=== PATIENT | female | born 1965 | race Caucasian/White ===

== ENCOUNTER 2018-06-01 05:29 | Day surgery (SDC) | payer OTHER ==
[~2018-06-01] VITALS: Ht 154.9 cm; Wt 61.7 kg
[2018-06-01] MEDS ORDERED: CEFAZOLIN SOD 1 GM in D5W 50 ML IV ONE (07:00)
[2018-06-01] MEDS ORDERED: fentaNYL CITRATE/PF 100 MCG/2 ML AMP IVP PRN ×2 (08:00)
[2018-06-01] MEDS ORDERED: ONDANSETRON HCL 4 MG/2 ML VIAL IVP PRN ×2 (08:00→11:00)
[2018-06-01] MEDS ORDERED: KETOROLAC TROMETHAMINE 30 MG VIAL IVP PRN (08:00)
[2018-06-01] MEDS ORDERED: ROCURONIUM BROMIDE 10 MG/ML (ZEMURON) ONE (10:20)
[2018-06-01] MEDS ORDERED: NS 1000 ML IV.SOLN IV ONE (10:20)
[2018-06-01] MEDS ORDERED: ONDANSETRON HCL 4 MG/2 ML VIAL ONE ×2 (10:20→11:14)
[2018-06-01] MEDS ORDERED: NS IRRIG SOLN 1000 ML IR ONE (10:20)
[2018-06-01] MEDS ORDERED: PROPOFOL 200MG/ 20ML VIAL (DIPRIVAN) IV ONE (10:20)
[2018-06-01] MEDS ORDERED: NEOSTIGMINE METHYLSULFATE 1 MG/ML, 10 ML VIAL ONE (10:20)
[2018-06-01] MEDS ORDERED: LR 1,000 ML IV.SOLN IV ONE (10:20)
[2018-06-01] MEDS ORDERED: MIDAZOLAM HCL 5 MG/ML VIAL (VERSED) IV ONE (10:20)
[2018-06-01] MEDS ORDERED: SEVOFLURANE 15 MIN GAS INH ONE (10:20)
[2018-06-01] MEDS ORDERED: LABETALOL 100 MG/ 20ML VIAL ONE (10:20)
[2018-06-01] MEDS ORDERED: BUPIVACAINE /EPINEPHRINE/PF 0.5% 30 ML VIAL INJ ONE (10:20)
[2018-06-01] MEDS ORDERED: GLYCOPYRROLATE 0.2 MG/ML VIAL ONE (10:20)
[2018-06-01] MEDS ORDERED: fentaNYL CITRATE/PF 100 MCG/2 ML AMP ONE (10:20)
[2018-06-01] MEDS ORDERED: LIDOCAINE 2%, 20 ML MDV ONE (10:20)
[2018-06-01] MEDS ORDERED: ROPIVACAINE 0.2% (NAROPIN) PF SOLUTION 100 ML BOTTLE ONE (10:20)
[2018-06-01] MEDS ORDERED: BUPIVACAINE /PF 0.25% 30 ML VIAL INJ ONE (10:20)
[2018-06-01] MEDS ORDERED: OXYCODONE/ACETAMINOPHEN 5-325 TABLET PO PRN ×2 (11:00)
[2018-06-01] MEDS ORDERED: PROMETHAZINE HCL 25 MG/ML AMP IM PRN (11:00)
[2018-06-01] MEDS ORDERED: hydrALAZINE HCL 20 MG/ML VIAL ONE (11:29)
[2018-06-01] MEDS ORDERED: hydrALAZINE HCL 20 MG/ML VIAL IVP ONE (11:30)
[2018-06-01] MEDS ORDERED: PROMETHAZINE HCL 25 MG/ML AMP ONE (12:18)
[2018-06-01 12:58] VITALS: BP_SYST 133
[2018-06-01] MEDS ORDERED: OXYCODONE/ACETAMINOPHEN 5-325 TABLET ONE (15:08)
[2018-06-01] MEDS ORDERED: METOCLOPRAMIDE HCL 10 MG/2 ML VIAL IVP ONE (15:45)
== END 2018-06-01 16:20 | disposition home or self-care (01) ==
LOC: SDS 05:29 → SMU 05:29 → SDS 16:20
PROVIDERS: ATTEND Obstetrics & Gynecology
DX: N84.0 Polyp of corpus uteri (principal); N83.8 Other noninflammatory disorders of ovary, fallopian tube and broad ligament; M54.16 Radiculopathy, lumbar region; E78.1 Pure hyperglyceridemia; Z82.49 Family history of ischemic heart disease and other diseases of the circulatory system; Z83.3 Family history of diabetes mellitus; Z80.8 Family history of malignant neoplasm of other organs or systems; E55.9 Vitamin D deficiency, unspecified; Z98.890 Other specified postprocedural states; Z79.899 Other long term (current) drug therapy
CPT/HCPCS: 36415; 58571; 86886; 86900; 86901; 88307; C1727; J0360; J0690; J2001; J2250; J2405; J2550; J2704; J2710; J2795; J3010; J3490 ×4; J7030; J7060; J7120; E0190